=== PATIENT | female | born 1995 | race African-American/Black ===

== ENCOUNTER → 2019-07-08 | Emergency (ER) | payer SELFPAY ==
[~2019-07-08] VITALS: Ht 160 cm; Wt 68.0 kg
[~2019-07-08] MED LIST: ACETAMINOPHEN-1 EAC1 ORAL; AUGMENTIN 875-1 EAC1 ORAL; Augmentin 875mg Tab ORAL ONE; IBUPROFEN600 MG ORAL; Lidocaine 1% MPF 10mg/ml 5ml IM ONE; MUPIROCIN22 GM TOPIC
--- NOTE | 2019-07-08 17:55 | NUR ---
ED Nurse Note: Pt walked in from home c/o right index finger pain 10/10 x 2 days. Pt had acrylic nails and could not remove the nail on the right index finger. Finger is swollen. Respirations even and unlabored on room air. Vitals stable as documented.
[2019-07-08 17:58] VITALS: BP 111/75
--- NOTE | 2019-07-08 18:55 | Emergency Room Report ---
History of Present Illness General Chief Complaint: Skin Rash/Abscess Source: Patient Present Illness HPI 23 YO female presents to the ED c/o 02/11 in severity pain, swelling, and erythema of the right index finger s/p artificial nail application x 1 week. Pt. reports she has been doing warm water soaks and squeezing it with no relief. Pt. reports she has not been able to drain anything from the areas with visible pus under the skin. Pt. reports she is right hand dominant. Denies any relieving factors at this time. She denies finger pad tenderness. She states she is UTD with Tdap. Denies . Allergies: Coded Allergies: No Known Allergies (Unverified , 07/08/19) Patient History Past Medical History: see triage record Past Surgical History: none Pertinent Family History: none Last Menstrual Period: 07/04/2019 Now: No Reviewed Nursing Documentation: PMH: Agreed; PSxH: Agreed Nursing Documentation-PMH Past Medical History: No Stated History Review of Systems All Other Systems: negative except mentioned in HPI Physical Exam Vital Signs Date Time Temp Pulse Resp B/P (MAP) Pulse Ox O2 Delivery O2 Flow Rate FiO2 07/08/19 17:40 98.1 80 13 113/72 (86) 96 Room Air Sp02 EP Interpretation: reviewed, normal General Appearance: no apparent distress, alert, GCS 15, non-toxic Head: normocephalic, atraumatic Eyes: bilateral eye normal inspection, bilateral eye PERRL ENT: hearing grossly normal, normal voice Neck: full range of motion Respiratory: chest non-tender, lungs clear, normal breath sounds, speaking full sentences Cardiovascular #1: regular rate, rhythm, normal capillary refill Musculoskeletal: normal range of motion, gait/station normal, non-tender Neurologic: alert, motor strength/tone normal, oriented x3, sensory intact, responsive, speech normal Psychiatric: judgement/insight normal Skin: other - Swelling, erythema, tenderness with purulent d/c under the skin at the cuticle and under the nail and under the nailbed. there is no finger pad tenderness. Procedures Incision and Drainage Incision and Drainage : Consent: Verbal Site: Right index finger Blade Size: 11 I & D Procedure: betadine prep, sterile drapes applied, sterile dressing applied Wound Location: upper extremity - right index finger Wound's Depth, Shape: linear - 0.5cm Wound Length (cm): 1 Wound Explored: contaminated - purulent d/c noted Irrigated w/ Saline (ccs): 200 Anesthesia: 1% Lidocaine Volume Anesthetic (ccs): 5 Splint Applied?: No Sling Applied?: No Patient Tolerated: Well Complications: None Medical Decision Making PA Attestation Dr. Dugan Is my supervising Physician whom patient management has been discussed with. Diagnostic Impression: Primary Impression: Paronychia of finger Qualified Codes: L03.011 - Cellulitis of right finger ER Course 23 YO female presents to the ED c/o 02/11 in severity pain, swelling, and erythema of the right index finger s/p artificial nail application x 1 week. Pt. reports she has been doing warm water soaks and squeezing it with no relief. Pt. reports she has not been able to drain anything from the areas with visible pus under the skin. Pt. reports she is right hand dominant. Denies any relieving factors at this time. She denies finger pad tenderness. She states she is UTD with Tdap. Denies . Ddx considered but are not limited to cellulitis, paronychia, eponychia, ingrown toe nail, fracture, d/L, gout Vital signs: are WNL, pt. is afebrile H&PE are most consistent with right index finger paronychia ORDERS: none required at this time, the diagnosis is clinical ED INTERVENTIONS: -Augmentin PO - verbal consent was received . - lesion was cleaned with Betadine prep. - Small incision using a sterile no. 11 blade to drain the paronychia. pt. tolerated well without complication. - sterile band-aid was then applied afterward. - will d/c pt. with PO abx. DISCHARGE: At this time pt. is stable for d/c to home. Will provide printed patient care instructions, and any necessary prescriptions. Care plan and follow up instructions have been discussed with the patient prior to discharge. Last Vital Signs Date Time Temp Pulse Resp B/P (MAP) Pulse Ox O2 Delivery O2 Flow Rate FiO2 07/08/19 17:58 98.1 84 13 111/75 96 Room Air Disposition: HOME, SELF-CARE Condition: Stable Scripts Acetaminophen With Codeine (T#3) (TYLENOL #3 TAB*) Y Tab 1 TAB ORAL Q6H PRN for For Pain, #6 TAB Prov: Neida Wan 07/08/19 Ibuprofen* (MOTRIN*) 600 Mg Tablet 600 MG ORAL THREE TIMES A DAY, #30 TAB 0 Refills Prov: Neida Wan 07/08/19 Mupirocin* (MUPIROCIN*) 22 Gm Oint...g. 1 APPLIC TOPIC THREE TIMES A DAY, #22 GM Prov: Neida Wan 07/08/19 Amoxicillin/Potassium Clav 875-125* (AUGMENTIN 875-125 TABLET*) 1 Each Tablet 1 TAB ORAL TWICE A DAY for 7 Days, #14 TAB Prov: Neida Wan 07/08/19 Patient Instructions: Fingertip Infection Additional Instructions: Take medications as directed. Follow up with a Primary Care Provider in 3-5 days, even if your symptoms have resolved. Return sooner to ED if new symptoms occur, or current symptoms become worse. - Please note that this Emergency Department Report was dictated using [employer] delivery driver technology software, occasionally this can lead to erroneous entry secondary to interpretation by the dictation equipment. Neida Wan Jul 08, 2019 18:55
== END | disposition home or self-care (01) ==
LOC: EMR 19:00
DX: L03.011 Cellulitis of right finger (principal)
CPT/HCPCS: 99283

== ENCOUNTER 2019-09-23 03:34 | Emergency (ER) | payer SELFPAY ==
[~2019-09-23] VITALS: Ht 160 cm; Wt 77.1 kg
[~2019-09-23 03:34] MED LIST changes: -Augmentin 875mg Tab ORAL ONE; -Lidocaine 1% MPF 10mg/ml 5ml IM ONE
[2019-09-23 03:35] VITALS: BP 123/75
--- NOTE | 2019-09-23 03:53 | Emergency Room Report ---
History of Present Illness General Chief Complaint: Sore Throat Source: Patient Present Illness HPI Patient presents with 3 days of sore throat. She denies any ear pain. No fevers or chills but she has some aches. She having pain when she swallows. She rates the pain 7/10. At rest when talking the pain is 5/10. Is not radiating down into her neck. She denies nausea vomiting or diarrhea. She states she is not at this time. She denies any rashes. She feels somewhat stressed about this and was smoking cannabis before coming in. Allergies: Coded Allergies: No Known Allergies (Unverified , 07/08/19) COVID-19 Screening Contact w/high risk pt: No Recent Travel to affected area: No Experienced COVID-19 symptoms?: No COVID-19 Testing performed TANK TENDER: No Patient History Past Medical History: see triage record Social History: Reports: smoking, drug use - Cannabis Last Menstrual Period: 08/17 Now: No Reviewed Nursing Documentation: PMH: Agreed; PSxH: Agreed Nursing Documentation-PMH Past Medical History: No Stated History Review of Systems Constitutional: Reports: see HPI ENT: Reports: see HPI Respiratory: Denies: cough Cardiovascular: Denies: chest pain Gastrointestinal: Reports: see HPI Genitourinary: Reports: see HPI Musculoskeletal: Reports: see HPI Skin: Reports: see HPI Neurological: Denies: headache Physical Exam Vital Signs Date Time Temp Pulse Resp B/P (MAP) Pulse Ox O2 Delivery O2 Flow Rate FiO2 09/23/19 03:35 98.6 72 20 123/75 98 Room Air Sp02 EP Interpretation: reviewed, normal General Appearance: well appearing, no apparent distress, GCS 15 Head: normocephalic Eyes: bilateral eye normal inspection, bilateral eye PERRL ENT: normal voice, TMs + canals normal, moist mucus membranes, tonsillar exudate Neck: full range of motion, supple, no meningismus Respiratory: normal inspection Cardiovascular #1: regular rate, rhythm Cardiovascular #2: 2+ radial (R) Gastrointestinal: normal inspection Musculoskeletal: gait/station normal Neurologic: alert, oriented x3, grossly normal Psychiatric: mood/affect normal Skin: normal color, no rash, warm/dry Medical Decision Making Diagnostic Impression: Primary Impression: Strep pharyngitis ER Course Patient presents with sore throat and exam consistent with strep pharyngitis. Other considerations to be mononucleosis and viral. Offered the patient either pills or shot. She chose child. In addition patient treated with Tylenol and dexamethasone. Discussed treatment plan with patient. Patient stable for outpatient observation and treatment. Last Vital Signs Date Time Temp Pulse Resp B/P (MAP) Pulse Ox O2 Delivery O2 Flow Rate FiO2 09/23/19 04:26 98.6 80 16 112/68 99 Room Air Status: improved Disposition: HOME, SELF-CARE Condition: Improved Scripts Acetaminophen (Tylenol) 325 Mg Tablet 650 MG ORAL Q6H PRN for Prn Pain/Headache/Temp > 101, #20 TAB 0 Refills Prov: Dayron Zhou MD 09/23/19 Referrals: NOT CHOSEN IPA/,REFERRING (PCP) Dayron Zhou MD September 23, 2019 03:53
[2019-09-23] MEDS ORDERED: TYLENOL325 MG ORAL (03:56)
[2019-09-23] MEDS ORDERED: Acetaminophen Soln 160mg/5ml ORAL ONE (04:00)
[2019-09-23] MEDS ORDERED: Bicillin LA 1.2MMU/2ML SYR IM ONE (04:00)
[2019-09-23 04:26] VITALS: BP 112/68
== END 2019-09-23 04:26 | disposition home or self-care (01) ==
LOC: EMR 03:50
DX: J02.0 Streptococcal pharyngitis (principal); F12.90 Cannabis use, unspecified, uncomplicated
CPT/HCPCS: 96372; 99283; J0570; J8540; J0561